=== PATIENT | male | born 1955 | race Caucasian/White ===

== ENCOUNTER 2016-09-22 14:02 | Inpatient (IN) | payer BC, OTHER ==
[~2016-09-22] VITALS: Ht 172.7 cm; Wt 72.6 kg
[2016-09-22 14:05] VITALS: BP 119/78; PULSE 65; RESP 17; TEMP 98; O2SAT 97
--- NOTE | 2016-09-22 16:00 | NUR ---
Patient to ER bed 4 to gown for evaluation. Side rails up. Report given to Adonis SHIN.
--- NOTE | 2016-09-22 16:00 | NUR ---
Note armandalexandro in EDM - 09/22/16 at 1909 by GARTH Pt report received from ALEIDA Silva. Pt c/o lower bag pain that radiates down left leg to left foot, numbness to heel and toe of left foot. Pt states he was bending over with a chainsaw and felt his back pop. Informed by x-ray that he has a 1/2 inch protrusion to disk.
--- NOTE | 2016-09-22 16:00 | NUR ---
Note armandalexandro in EDM - 09/22/16 at 1714 by GARTH Pt report received from ALEIDA Silva. Pt c/o lower bag pain that radiates down left leg to left foot, numbness to heel and toe of left foot. Pt states he was bending over with a chainsaw and felt his back pop. Informed by x-ray that he has a 1/2 inch protrusion to disk.
--- NOTE | 2016-09-22 16:00 | NUR ---
Pt report received from ALEIDA Silva. Pt c/o lower back pain that radiates down left leg to left foot, numbness to heel and toe of left foot. Pt states he was bending over with a chainsaw and felt his back pop. Informed by x-ray that he has a 1/2 inch protrusion to disk.
--- NOTE | 2016-09-22 16:06 | NUR ---
ER at bedside examining patient.
[2016-09-22] MEDS ORDERED: DEXAMETHASONE SOD PHOSPHATE 10 MG/ML VIAL IM ONE (16:15)
[2016-09-22] MEDS ORDERED: KETOROLAC TROMETHAMINE 60 MG/2 ML VIAL IM ONE (16:15)
[2016-09-22 16:38] LABS: BASOPHILS # (AUTO) 0.1 K/uL (0.0-0.2); BASOPHILS % (AUTO) 0.7 % (0.0-2.0); EOSINOPHILS # (AUTO) 0.3 K/uL (0.0-0.4); EOSINOPHILS % (AUTO) 3.5 % (0.0-4.0); HEMATOCRIT 44.3 % (36-54); HEMOGLOBIN 14.8 g/dL (14.0-18.0); LYMPHOCYTES # (AUTO) 3.2 K/uL (1.0-5.5); LYMPHOCYTES % (AUTO) 35.7 % (20.5-51.5); MEAN CORPUSCULAR HEMOGLOBIN 33 pg (27-31); MEAN CORPUSCULAR HGB CONC 33 % (32-36); MEAN CORPUSCULAR VOLUME 98 fL (79.0-98.0); MONOCYTES # (AUTO) 0.7 K/uL (0.0-1.0); MONOCYTES % (AUTO) 7.9 % (1.7-9.3); NEUTROPHILS # (AUTO) 4.8 K/uL (1.8-7.7); NEUTROPHILS % (AUTO) 52.2 % (40.0-70.0); PLATELET COUNT (AUTO) 196 K/uL (130-430); RED BLOOD CELL COUNT(AUTO) 4.52 MIL/uL (4.2-6.2); RED CELL DISTRIBUTION WIDTH 12.4 % (9.0-15.0); WHITE BLOOD COUNT (AUTO) 9.1 K/uL (4.8-10.8)
[2016-09-22 16:41] LABS: CALCIUM 8.6 mg/dL (8.4-11.0); CREATININE 1.16 mg/dL (0.55-1.30); POTASSIUM 4.5 mmol/L (3.5-5.1)
[2016-09-22 16:45] LABS: INR 0.9 (0.80-1.20)
[2016-09-22 16:46] LABS: ALBUMIN 3.9 g/dL (3.4-4.8); TOTAL BILIRUBIN 0.2 mg/dL (0.0-1.0); TOTAL PROTEIN, SERUM 6.4 g/dL (6.4-8.3)
[2016-09-22] MEDS ORDERED: DEXAMETHASONE SOD PHOSPHATE 10 MG/ML VIAL ONE (17:05)
--- NOTE | 2016-09-22 17:39 | NUR ---
ADMISSION NOTE Received patient from ER via oren, received report from Guilherme SHIN. Patient admitted with diagnosis of Acute Back pain. Patient oriented to hospital routine, call light, toileting and safety-patient verbalized understanding.
[2016-09-22 17:40] VITALS: BP 16/83; PULSE 58; RESP 16; TEMP 97.5; O2SAT 98
--- NOTE | 2016-09-22 17:58 | NUR ---
Patient will be admitted to care of Dr. Allen. Admitted to Med/Surg unit. Will go to room 135A. Belongings list completed. Summary report printed. Report will be given at bedside.
--- NOTE | 2016-09-22 18:10 | NUR ---
NOTE RECEIVED REPORT FROM [facility], ADMISSION NURSE. PATIENT IS ALERT, AWAKE, AND ORIENTED. NO COMPLAINTS OF PAIN AT THIS TIME. NO NOTABLE SIGNS OF DISTRESS AT THIS TIME. PATIENT IS RESTING COMFORTABLY. PATIENTS BED IN LOWEST POSITION, CALL LIGHT WITHIN REACH, AND 2 SIDE RAILS ARE UP FOR SAFETY. PATIENT IS ENCOURAGED TO CALL WHEN GETTING UP OUT OF BED. WILL CONTINUE TO MONITOR PATIENT FOR CHANGES IN STATUS.
--- NOTE | 2016-09-22 18:29 | NUR ---
CONSULTATION PAGED REASON FOR CONSULTATION: BACK INJURY WAS CONSULT CALLED?Y PERSON WHO WAS NOTIFIED:ELLIS CONSULTING PHYSICIAN:BERKLEY ANVILSMITH SPECIALTY:NEUROLOGY ANVILSMITH PHONE NUMBER:[phone]
--- NOTE | 2016-09-22 20:00 | NUR ---
ROUNDS PATIENT RESTING COMFORTABLY IN BED, VITALS STABLE, DENIES ANY PAIN AND DISCOMFORT AT THIS TIME. ASSESSMENT DONE AND DOCUMENTED. SEE FLOWSHEET. NEEDS ATTENDED TO/ SAFETY AND FALL PRECAUTION MEASURES MAINTAINED. BED IN LOW AND LOCKED POSITION. BED ALARM ON. CALL LIGHT PLACED WITH PATIENT.
[2016-09-22] MEDS ORDERED: HYDROcodone/ACETAMIN 5-325 MG TAB (NORCO/ VICODIN) PO PRN (20:15)
[2016-09-22] MEDS ORDERED: TEMAZEPAM 15 MG CAPSULE PO PRN (20:30)
[2016-09-22] MEDS ORDERED: ONDANSETRON HCL 4 MG/2 ML VIAL IVP PRN ×2 (20:30)
[2016-09-22] MEDS ORDERED: ACETAMINOPHEN 325 MG TABLET PO PRN (20:30)
--- NOTE | 2016-09-22 21:15 | NUR ---
MEDICATION DUE MEDICATIONS GIVEN ORDERED, TOLERATED WELL. WILL CONTINUE TO MONITOR.
[2016-09-22] MEDS: METHOCARBAMOL 500 MG TABLET PO SCH (21:45)
--- NOTE | 2016-09-22 22:03 | NUR ---
PAGED PAGED DOCTOR SARAH FOR ORDERS SPOKE WITH LAURENCE
[2016-09-22] MEDS ORDERED: SIMETHICONE 80 MG TAB.CHEW PO PRN (22:15)
--- NOTE | 2016-09-23 | NUR ---
PATIENT RESTING: Patient resting quietly. No acute distress noted. Vital signs within normal range.
[2016-09-23 01:17] VITALS: BP 119/65; PULSE 57; RESP 18; TEMP 98.7; O2SAT 97
--- NOTE | 2016-09-23 02:05 | NUR ---
ROUNDS PATIENT RESTING: Patient resting quietly. No acute distress noted. Vital signs within normal range.
--- NOTE | 2016-09-23 04:05 | NUR ---
PATIENT RESTING: Patient resting quietly. No acute distress noted. Vital signs within normal range.
[2016-09-23 05:49] LABS: BILIRUBIN,URINE NEGATIVE (NEGATIVE); BLOOD, URINE NEGATIVE (NEGATIVE); CLARITY/URINE CLEAR (CLEAR); COLOR,URINE YELLOW (YELLOW); GLUCOSE,URINE TRACE (NEGATIVE); KETONES,URINE NEGATIVE (NEGATIVE); LEUKOCYTE ESTERASE ,URINE NEGATIVE (NEGATIVE); NITRITE, URINE NEGATIVE (NEGATIVE); PH,URINE 5.5 (5.0-8.0); PROTEIN URINE NEGATIVE (NEGATIVE); UROBILINOGEN,URINE 0.2 (0.2-1.0)
--- NOTE | 2016-09-23 06:30 | NUR ---
CLOSING NOTES PATIENT AWAKE, VITALS STABLE, NO PAIN AND DISCOMFORT AT THIS TIME. ALL NEEDS ATTENDED TO. SAFETY AND FALL PRECAUTION MEASURES MAINTAINED. CALL LIGHT PLACED WITHIN REACH.
--- NOTE | 2016-09-23 07:20 | NUR ---
Initial notes: pt on bed resting. stable. i.v. access patent on s.l. discussed plan of care. call light within reach.
[2016-09-23 08:00] VITALS: BP 132/80; PULSE 68; RESP 16; TEMP 97.9; O2SAT 98
[2016-09-23] MEDS: METHOCARBAMOL 500 MG TABLET PO SCH ×4 (08:19→22:19)
--- NOTE | 2016-09-23 08:22 | NUR ---
rounds: pt sitting on the chair. verbalized "when not moving he's not in pain but when he stand there is pain at the lower back 11/11". Pain med will be given.
[2016-09-23] MEDS: KETOROLAC TROMETHAMINE 15 MG VIAL IVP PRN ×3 (08:32→22:25)
--- NOTE | 2016-09-23 09:47 | NUR ---
NEUROLOGY CONSULT F/U BACK INJURY DR GOODEN [phone] S/W [facility] OFFICE @ [id number]
--- NOTE | 2016-09-23 11:30 | NUR ---
Avelino rounds: seen by Dr. Allen with new order.
[2016-09-23 11:43] VITALS: BP 136/81; PULSE 54; RESP 16; TEMP 98.8; O2SAT 100
--- NOTE | 2016-09-23 12:51 | NUR ---
rounds: pt on bed resting. no distress noted.
--- NOTE | 2016-09-23 15:00 | NUR ---
rounds: pt waiting for mri. no distress noted. at bedside.
--- NOTE | 2016-09-23 15:41 | NUR ---
MRI: health physics technicianSanna, wheeled the pt via W/C to radiology for MRI procedure.
[2016-09-23 16:44] VITALS: BP 118/78; PULSE 56; RESP 16; TEMP 97.2; O2SAT 100
--- NOTE | 2016-09-23 17:17 | NUR ---
IV RE-INSERTION: I.V. came off site. Restarted on L hand. Successful after 1 attempt. Saline lock. Will observe for any signs of infiltration.
--- NOTE | 2016-09-23 18:20 | NUR ---
Avelino rounds: seen by Raffy Stoner with new order.
--- NOTE | 2016-09-23 18:37 | NUR ---
Closing notes: pt on bed resting. stable. needs attended. pt aware of surgery tomorrow and will start NPO at midnight. call light within reach. report will be given to food counter worker.
[2016-09-24 01:30] VITALS: BP 141/74; PULSE 51; RESP 18; TEMP 97.1; O2SAT 98
[2016-09-24 08:00] VITALS: BP 114/70; PULSE 76; RESP 18; TEMP 98.5; O2SAT 96
[2016-09-24] MEDS: METHOCARBAMOL 500 MG TABLET PO SCH ×2 (08:36→13:00)
--- NOTE | 2016-09-24 10:32 | NUR ---
PATIENT OFF THE UNIT FOR SURGERY, STABLE CONDITION AT THIS TIME.
[2016-09-24] MEDS ORDERED: POLYMYXIN 500,000/BACIT.10,000 UNITS in NS IRR 1 L IR ONE (10:37)
[2016-09-24] MEDS ORDERED: CEFAZOLIN 2 GM IVPB PREMIX 50 ML IV ONE (10:37)
[2016-09-24] MEDS ORDERED: LR 1,000 ML IV ONE (11:38)
[2016-09-24] MEDS ORDERED: NALBUPHINE HCL 10 MG/ML AMP IVP PRN (11:45)
[2016-09-24] MEDS ORDERED: DIPHENHYDRAMINE INJ 50 MG/ML VIAL IVP PRN (11:45)
[2016-09-24] MEDS ORDERED: NALOXONE HCL 0.4 MG/ML AMP (NARCAN) IVP PRN (11:45)
[2016-09-24] MEDS ORDERED: ONDANSETRON HCL 4 MG/2 ML VIAL IVP PRN ×2 (11:45)
[2016-09-24] MEDS ORDERED: fentaNYL CITRATE/PF 100 MCG/2 ML AMP IVP PRN (11:45)
[2016-09-24] MEDS ORDERED: ePHEDrine sulfate 50 MG/ML VIAL IVP PRN (11:45)
[2016-09-24 12:57] VITALS: BP 114/70; PULSE 76; RESP 18; TEMP 98.5; O2SAT 96
--- NOTE | 2016-09-24 13:01 | NUR ---
1300 MEDICATION UNABLE TO GIVE, PATIENT IS STILL IN OR.
--- NOTE | 2016-09-24 13:28 | NUR ---
PATIENT BACK ON THE UNIT STABLE CONDITION, STATES MODERATE PAIN LEVEL, DIET ORDER IS NOW REGULAR, PATIENT STATES HE WILL EAT LUNCH THEN GO HOME.
[2016-09-24] MEDS ORDERED: LR 1,000 ML IV.SOLN IV ONE (14:14)
[2016-09-24] MEDS ORDERED: fentaNYL CITRATE/PF 100 MCG/2 ML AMP IVP ONE (14:14)
[2016-09-24] MEDS ORDERED: MIDAZOLAM HCL 5 MG/5 ML VIAL IVP ONE (14:14)
[2016-09-24] MEDS ORDERED: NS 100 ML BAG IV ONE (14:14)
[2016-09-24] MEDS ORDERED: KETOROLAC TROMETHAMINE 30 MG VIAL IVP ONE (14:14)
[2016-09-24] MEDS ORDERED: DEXAMETHASONE SOD PHOSPHATE 4 MG/ML VIAL IVP ONE (14:14)
[2016-09-24] MEDS ORDERED: THROMBIN (BOVINE) 5000 UNITS/ VIAL TP ONE (14:14)
[2016-09-24] MEDS ORDERED: SEVOFLURANE 15 MIN GAS INH ONE (14:14)
[2016-09-24] MEDS ORDERED: BUPIVACAINE /EPINEPHRINE/PF 0.5% 30 ML VIAL INJ ONE (14:14)
[2016-09-24] MEDS ORDERED: PROPOFOL 200MG/ 20ML VIAL (DIPRIVAN) IV ONE (14:14)
[2016-09-24] MEDS ORDERED: METOCLOPRAMIDE HCL 10 MG/2 ML VIAL IVP ONE (14:14)
[2016-09-24] MEDS ORDERED: ROCURONIUM BROMIDE 10 MG/ML (ZEMURON) IV ONE (14:14)
--- NOTE | 2016-09-24 14:15 | NUR ---
D/C Patient Patient given medication reconciliation form and D/C instructions. Exit Care provided. Patient verbalized understanding. MD discussed with patient the results and treatment provided. Ambulatory with steady gait for discharge to home. Patient in stable condition, ID band removed. IV catheter removed, intact and dressing applied, no active bleeding. Rx of NORCO, ROBAXIN given. Patient educated on pain management. All belongings sent with patient.
== END 2016-09-24 14:15 | disposition home or self-care (01) | DRG 520 ==
LOC: SED 14:02 → SMU 17:11
PROVIDERS: ADMIT Internal Medicine; ATTEND Internal Medicine
PROC: 0SB20ZZ Excision of Lumbar Vertebral Disc, Open Approach (ICD-10-PCS; principal; 2016-09-22)
PROC: 4A11X4G Monitoring of Peripheral Nervous Electrical Activity, Intraoperative, External Approach (ICD-10-PCS; 2016-09-22)
DX: M51.26 Other intervertebral disc displacement, lumbar region (principal); M54.40 Lumbago with sciatica, unspecified side; F17.210 Nicotine dependence, cigarettes, uncomplicated; M47.817 Spondylosis without myelopathy or radiculopathy, lumbosacral region; I70.90 Unspecified atherosclerosis; Z85.9 Personal history of malignant neoplasm, unspecified
CPT/HCPCS: 36415; 71020-TC; 72131; 72148; 76000; 80053; 81003; 82306; 85025; 85610-TC; 85730-TC; 87081; 88305; 93005; 96374; 96375; 99285; J0690; J1100; J1885; J2250; J2704; J2765; J3010; J3490; J7120